=== PATIENT | male | born 1950 | race Caucasian/White ===

== ENCOUNTER 2016-10-16 17:22 | Inpatient (IN) | payer MEDICARE ==
[~2016-10-16] VITALS: Ht 190.5 cm; Wt 90.3 kg
[~2016-10-16 17:22] MED LIST: ALPR1T PO; ATEN50TA PO; AZTH250C PO; BUPR150T6 PO; CLN.1T PO; CLON1000 EP; CYCL10TA9 PO; FLUT1DIS26 IH; GABA600T2 PO; HYDR-3720 PO; MNTL10T PO; NFPRILOC40 PO; OXYC-281 PO; POTA20TA15 PO; PRD50T PO; RT-COMBINH IH; SIMV40TA4 PO; TESTOSTERONE; TRM50T PO; VARE1TAB17 PO; WARF7.5T PO; WRF5T PO; ZLP10T PO
[2016-10-16] MEDS ORDERED: LACTATED RINGERS 1,000 ML IV ONE (18:13)
[2016-10-16] MEDS ORDERED: ONDANSETRON 4 MG/2 ML (SDV) Z0FRAN IVP ONE (18:15)
[2016-10-16 18:19] LABS: BASOPHILS % (AUTO) 0 % (0-10); EOSINOPHILS # (AUTO) 0.4 10^3/uL (0.0-0.3); EOSINOPHILS % (AUTO) 5 % (0-10); LYMPHOCYTES # (AUTO) 2.1 X 10^3 (1.0-4.0); LYMPHOCYTES % (AUTO) 27 % (12-44); MEAN CORPUSCULAR HEMOGLOBIN 33 PG (25-34); MEAN CORPUSCULAR HGB CONC 35 G/DL (32-36); MEAN CORPUSCULAR VOLUME 94 FL (80-99); MONOCYTES # (AUTO) 0.6 X 10^3 (0.0-1.0); MONOCYTES % (AUTO) 7 % (0-12); NEUTROPHILS # (AUTO) 4.9 X 10^3 (1.8-7.8); NEUTROPHILS % (AUTO) 61 % (42-75); PLATELET COUNT 225 10^3/uL (130-400); RED BLOOD COUNT 5.19 10^6/uL (4.35-5.85); RED CELL DISTRIBUTION WIDTH 13.3 % (10.0-14.5)
[2016-10-16] MEDS ORDERED: fentaNYL INJECTION 100 MCG/2 ML AMP IVP STA ×2 (18:20→19:43)
[2016-10-16 18:25] LABS: PROTHROMBIN TIME PATIENT 31.2 SEC (12.2-14.7)
--- NOTE | 2016-10-16 18:27 | ED Abdominal Pain ---
General Chief Complaint: Abdominal/GI Problems Stated Complaint: STOMACH PAIN Nursing Triage Note: Pt reports he "has a blockage". Pt stating he has hx of multiple bowel obstructions and states he thinks he has a full blockage this time. Pt c/o midline abd pain and nausea. Sepsis Screen: No Definite Risk Source of Information: Patient History of Present Illness Time Seen By Provider: 18:09 Initial Comments PT C/O SEVERE GENERALIZED ABDOMINAL PAIN, DISTENTION AND NAUSEA SINCE 0900 THIS AM FELT FINE WHEN HE WOKE UP, ATE BREAKFAST AT 0830, AND SYMPTOMS BEGAN IMMEDIATELY AFTER THAT. HAS NOT HAD ANYTHING ELSE TO EAT OR DRINK TODAY PT HAD NORMAL BM YESTERDAY, AND HAD A VERY SMALL LIQUID STOOL TODAY AT 0600 PT HAS HAD MULTIPLE BOWEL OBSTRUCTIONS, AND HE STATES THIS ONE FEELS LIKE A TOTAL OBSTRUCTION--LAST SURGERY WAS A YEAR AGO FOR THIS PROBLEM AT [facility] , BUT HAS BEEN TO MULTIPLE FACILITIES AND MULTIPLE SURGEONS FOR THIS PROBLEM OVER THE YEARS--BEGAN WHEN HE WAS 26. NO FEVER HAS HAD DECREASED URINE OUTPUT TODAY PCP: DR. BABIN FREEBURN NO SURGEON Allergies and Home Medications Allergies Coded Allergies: No Known Drug Allergies (Verified , 10/08/07) Home Medications Alprazolam 1 Mg Tablet, 1 MG PO BID PRN, (Reported) Atenolol 50 Mg Tablet, 100 MG PO BID, (Reported) Bupropion Hcl 150 Mg Tab.sr.24h, 1 TAB PO DAILY, #30 (Reported) Clonidine Hcl/Pf 1,000 Mcg/10 Ml Vial, 1,000 MCG EP DAILY, (Reported) Cyclobenzaprine Hcl 10 Mg Tablet, 1 EACH PO Q8HR PRN, #15 Ref 0 FOR MUSCLE SPASMS Prescribed by: FRANK LAZO on 06/29/11 4425 Fluticasone/Salmeterol 1 Disk Inhp, 1 PUFF IH BID, (Reported) 1 PUFF Gabapentin 600 Mg Tablet, 1 EACH PO BID, (Reported) Hydrocodone Bit/Acetaminophen 1 Each Tablet, 1 EACH PO BID PRN, (Reported) Ipratropium/Albuterol Sulfate 14.7 Gm Aer.w.adap, 2 PUFF IH BID, (Reported) Montelukast Sodium 10 Mg Tab, 10 MG PO DAILY, (Reported) Potassium Chloride 20 Meq Tab.prt.sr, 1 EACH PO DAILY, (Reported) Varenicline Tartrate 1 Mg Tablet, 3 MG PO BID, (Reported) Warfarin Sodium 5 Mg Tablet, 5 MG PO DAILY, (Reported) Zolpidem Tartrate 10 Mg Tablet, 10 MG PO HS PRN, (Reported) Review of Systems Constitutional: no symptoms reported Respiratory: No Symptoms Reported Cardiovascular: No Symptoms Reported Gastrointestinal: See HPI, Abdomen Distended, Abdominal Pain, Nausea, Poor Appetite, Poor Fluid Intake, Denies Vomiting Genitourinary: See HPI Musculoskeletal: no symptoms reported Skin: no symptoms reported Psychiatric/Neurological: No Symptoms Reported Endocrine: No Symptoms Reported Hematologic/Lymphatic: No Symptoms Reported Past Knpvoaa-Rgjzru-Eaariq Hx Patient Social History Alcohol Use: Occasionally Uses (HISTORY OF ABUSE, NOW "OCCASIONALLY" DRINKS) Recreational Drug Use: No Smoking Status: Current Everyday Smoker (1 PPD) Type Used: Cigarettes Recent Foreign Travel: No Contact w/Someone Who Travel: No Recent Infectious Disease Expo: No Recent Hopitalizations: No Immunizations Up To Date Date of Pneumonia Vaccine: May 24, 2011 Date of Influenza Vaccine: Jan 22, 2012 Seasonal Allergies Seasonal Allergies: No Surgeries HX Surgeries: Yes (APPY AGE 3--RUPTURED/GANGRENE; MULTIPLE SURGERIES FOR BOWEL OBSTRUCTIONS; MULTIPLE HERNIA REPAIRS WITH MESH; THROMBECTOMY AND VASCULAR STENT TO RIGHT LEG; RIGHT HIP REPLACEMENT) Surgeries: Abdominal, Appendectomy, Bowel Surgery, Joint Replacement, Orthopedic, Vascular Surgery Respiratory Hx Respiratory Disorders: Yes Respiratory Disorders: Pulmonary Embolism, COPD Cardiovascular Hx Cardiac Disorders: Yes (DVT AND P.E.'S POST OP--ON GRAVITY MANAGER COUMADIN; ? CAD /DE??--PER OLD CHART) Cardiac Disorders: Coronary Artery Disease, Deep Vein Thrombosis, High Cholesterol, Hypertension, Peripheral Vascular Neurological Hx Neurological Disorders: Yes (CVA WITH RIGHT SIDE WEAKNESS) Neurological Disorders: Stroke, TIA Reproductive System Hx Reproductive Disorders: No Sexually Transmitted Disease: No Genitourinary Hx Genitourinary Disorders: No Gastrointestinal Hx Gastrointestinal Disorders: Yes (MULTIPLE BOWEL OBSTRUCTIONS AND MULTIPLE HERNIA REPAIRS) Gastrointestinal Disorders: Abdominal Hernia, Obstructive Bowel Musculoskeletal Hx Musculoskeletal Disorders: Yes (RIGHT HIP REPLACEMENT) Musculoskeletal Disorders: Osteoporosis, Arthritis, Chronic Back Pain Endocrine Hx Endocrine Disorders: No HEENT HX ENT Disorders: No Cancer Hx Cancer: Yes Cancer: Skin Psychosocial Hx Psychiatric Problems: Yes Behavioral Health Disorders: Sleep Difficulties, Anxiety, Depression Integumentary HX Skin/Integumentary Disorder: No Blood Transfusions Hx Blood Disorders: Yes (DVT, PE'S POST OP) Physical Exam Vital Signs VS - Last 72 Hours, by Label 10/16/16 17:51 Temp 97.0 Pulse 84 Resp 18 B/P (MAP) 169/105 Pulse Ox 94 O2 Delivery Room Air Capillary Refill : Less Than 3 Seconds General Appearance: WD/WN, no apparent distress HEENT: other (POOR DENTITION) Respiratory: normal breath sounds, no respiratory distress, no accessory muscle use Cardiovascular: regular rate, rhythm, no murmur Gastrointestinal: abnormal bowel sounds (RARE, HIGH-PITCHED), distended (AND FIRM), tenderness (DIFFUSE), No hernia, No mass Extremities: normal inspection, no pedal edema Back: no CVA tenderness 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/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, no motor/sensory deficits, alert, normal mood/affect, oriented x 3 Skin: normal color Progress/Results/Core Measures Results/Orders Lab Results Laboratory Tests Test 10/16/16 18:00 Range/Units White Blood Count 8.0 4.3-11.0 10^3/uL Red Blood Count 5.19 4.35-5.85 10^6/uL Hemoglobin 17.2 13.3-17.7 G/DL Hematocrit 49 40-54 % Mean Corpuscular Volume 94 80-99 FL Mean Corpuscular Hemoglobin 33 25-34 PG Mean Corpuscular Hemoglobin Concent 35 32-36 G/DL Red Cell Distribution Width 13.3 10.0-14.5 % Platelet Count 225 130-400 10^3/uL Mean Platelet Volume 9.0 7.4-10.4 FL Neutrophils (%) (Auto) 61 42-75 % Lymphocytes (%) (Auto) 27 12-44 % Monocytes (%) (Auto) 7 0-12 % Eosinophils (%) (Auto) 5 0-10 % Basophils (%) (Auto) 0 0-10 % Neutrophils # (Auto) 4.9 1.8-7.8 X 10^3 Lymphocytes # (Auto) 2.1 1.0-4.0 X 10^3 Monocytes # (Auto) 0.6 0.0-1.0 X 10^3 Eosinophils # (Auto) 0.4 H 0.0-0.3 10^3/uL Basophils # (Auto) 0.0 0.0-0.1 10^3/uL Prothrombin Time 31.2 H 12.2-14.7 SEC INR Comment 3.0 H 0.8-1.4 Activated Partial Thromboplast Time 49 H 24-35 SEC Sodium Level 140 135-145 MMOL/L Potassium Level 3.8 3.6-5.0 MMOL/L Chloride Level 101 98-107 MMOL/L Carbon Dioxide Level 28 21-32 MMOL/L Anion Gap 11 5-14 MMOL/L Blood Urea Nitrogen 8 7-18 MG/DL Creatinine 0.82 0.60-1.30 MG/DL Estimat Glomerular Filtration Rate > 60 BUN/Creatinine Ratio 10 0-20 Glucose Level 103 70-105 MG/DL Calcium Level 9.3 8.5-10.1 MG/DL Magnesium Level 2.1 1.8-2.4 MG/DL Total Bilirubin 0.5 0.1-1.0 MG/DL Aspartate Amino Transf (AST/SGOT) 24 5-34 U/L Alanine Aminotransferase (ALT/SGPT) 21 0-55 U/L Alkaline Phosphatase 90 40-136 U/L Total Protein 7.5 6.4-8.2 GM/DL Albumin 4.0 3.2-4.5 GM/DL Amylase Level 39 25-125 U/L Lipase 15 8-78 U/L My Orders Orders - FRANK LAZO DO Saline Lock/Iv-Start (10/16/16 18:13) Amylase (10/16/16 18:13) Cbc With Automated Diff (10/16/16 18:13) Comprehensive Metabolic Panel (10/16/16 18:13) Lipase (10/16/16 18:13) Magnesium (10/16/16 18:13) Protime With Inr (10/16/16 18:13) Partial Thromboplastin Time (10/16/16 18:13) Ua Culture If Indicated (10/16/16 18:13) Acute Abd Series (10/16/16 18:13) Ct Abdomen/Pelvis Wo (10/16/16 18:13) Saline Lock/Iv-Start (10/16/16 18:13) Lactated Ringers (Lr 1000 Ml Iv Solution (10/16/16 18:13) Ondansetron Injection (Zofran Injectio (10/16/16 18:15) Fentanyl Injection (Sublimaze Injection (10/16/16 18:20) Drug Screen Stat (Urine) (10/16/16 18:25) Medications Given in ED Current Medications Medications Dose Ordered Sig/Baylee Route Start Time Stop Time Status Last Admin Dose Admin Lactated Ringer's 1,000 ml @ 0 mls/hr Q0M ONCE IV 10/16/16 18:13 10/16/16 18:15 DC 10/16/16 18:23 1,000 MLS/HR Ondansetron HCl 4 mg ONCE ONCE IVP 10/16/16 18:15 10/16/16 18:16 DC 10/16/16 18:23 4 MG Vital Signs/I&O Vital Sign - Last 12Hours 10/16/16 17:51 Temp 97.0 Pulse 84 Resp 18 B/P (MAP) 169/105 Pulse Ox 94 O2 Delivery Room Air Blood Pressure Mean: 126 Progress Note : Progress Note PAIN EASED WITH MEDICATIONS. NO DETERIORATION IN PT'S CONDITION DURING ER STAY Diagnostic Imaging Comments CT ABDOMEN/PELVIS--PROXIMAL SMALL BOWEL OBSTRUCTION--PER RADIOLOGIST REPORT @ 1908 ACUTE ABDOMEN XRAYS--SBO, PER RADIOLOGIST REPORT @ 1922 Reviewed: Reviewed by Me Departure Communication Progress Notes 1907/1909--PAGED/SPOKE WITH DR. SIDDIQUI--ACCEPTS PT FOR ADMIT. ORDERS NOTED. Impression Impression: Primary Impression: Small bowel obstruction Disposition: ADMITTED INPATIENT Condition: Stable Decision to Admit Reason: Admit from ER (General) Decision to Admit/Date: Oct 16, 2016 Time/Decision to Admit Time: 19:10 Departure-Patient Inst. Referrals: NO,LOCAL PHYSICIAN (PCP/Family) Primary Care Physician FRANK LAZO DO Oct 16, 2016 18:27
[2016-10-16 18:37] LABS: ALANINE AMINOTRANSFERASE 21 U/L (0-55); AMYLASE 39 U/L (25-125); ANION GAP 11 MMOL/L (5-14); ASPARTATE AMINO TRANSFERASE 24 U/L (5-34); BILIRUBIN,TOTAL 0.5 MG/DL (0.1-1.0); BLOOD UREA NITROGEN 8 MG/DL (7-18); BUN/CREATININE RATIO 10 (0-20); CALCIUM 9.3 MG/DL (8.5-10.1); CARBON DIOXIDE 28 MMOL/L (21-32); CHLORIDE 101 MMOL/L (98-107); CREATININE SERUM 0.82 MG/DL (0.60-1.30); GFR ESTIMATED > 60; GLUCOSE 103 MG/DL (70-105); HEMOLYSIS 15 (-100-29); ICTERUS 0.4 (-100-1.9); LIPASE 15 U/L (8-78); LIPEMIA 3 (-100-49); MAGNESIUM 2.1 MG/DL (1.8-2.4); POTASSIUM 3.8 MMOL/L (3.6-5.0); SODIUM 140 MMOL/L (135-145); TOTAL PROTEIN 7.5 GM/DL (6.4-8.2)
--- NOTE | 2016-10-16 19:06 | Diagnostic Imaging Report ---
PROCEDURE: CT abdomen and pelvis without contrast. TECHNIQUE: Multiple contiguous axial images were obtained through the abdomen and pelvis without the use of intravenous contrast. INDICATION: Lower pelvic pain and nausea. COMPARISON: CT abdomen and pelvis with IV contrast 06/04/2012. FINDINGS: The lung bases are clear. Stable 1.0 cm hypoattenuating lesion in the posterior right hepatic lobe. The gallbladder, pancreas, spleen, adrenals, kidneys and collecting systems are negative on this noncontrast exam. The pelvis is mildly obscured by streak artifact from a right DANIEL. Moderate arterial calcifications including a normal-caliber abdominal aorta. Stable postoperative changes in the right anterior abdominal wall and small bowel anastomosis. There are several loops of dilated proximal small bowel with a probable transition point along the postoperative changes in the right anterior abdominal wall suspicious for adhesions. No pneumatosis or portal venous gas. No free intraperitoneal air. No free fluid. No lymphadenopathy. Moderate to advanced degenerative changes in the visualized thoracolumbar spine. No acute osseous findings. IMPRESSION: Dilated loops of proximal small bowel suspicious for small bowel obstruction. There appears to be a transition point along the anterior abdominal wall postoperative changes with decompression of the more distal small bowel. Findings are suspicious for an obstruction due to adhesions. Dictated by: Dictated on workstation # [id number]
--- NOTE | 2016-10-16 19:13 | Diagnostic Imaging Report ---
INDICATION: History of multiple bowel obstructions. Abdominal pain. COMPARISON: CT abdomen and pelvis performed earlier same day. FINDINGS: There are numerous gas-filled and dilated loops of small bowel throughout the abdomen. There is also gas seen within a nondilated ascending and transverse colon. No evidence of free intraperitoneal air. Lungs are clear. No pleural effusion or pneumothorax. Right total hip arthroplasty. IMPRESSION: 1. At least partial small bowel obstruction with numerous gas-filled and dilated loops of small bowel. Please see CT abdomen and pelvis report dictated separately for more complete details. Dictated by: Dictated on workstation # [id number]
[2016-10-16] MEDS ORDERED: PANTOPRAZOLE 40 MG/10 ML (PROTONIX) VIAL IV ONE (19:15)
[2016-10-16 20:46] LABS: BILIRUBIN,URINE NEGATIVE (NEGATIVE); KETONES,URINE NEGATIVE (NEGATIVE); LEUKOCYTE ESTERASE ,URINE NEGATIVE (NEGATIVE); NITRITE,URINE NEGATIVE (NEGATIVE); PH,URINE 6 (5-9); PROTEIN,URINE NEGATIVE (NEGATIVE); UROBILINOGEN,URINE 1 MG/DL (NORMAL)
[2016-10-16 20:53] LABS: SQUAMOUS EPITHELIAL CELL,UR RARE /HPF
[2016-10-16 21:00] VITALS: BP 172/97
--- NOTE | 2016-10-16 21:41 | History & Physicial ---
History of Present Illness History of Present Illness Reason for visit/HPI recurrent central abdominal pain and nausea of acute onset. Date of Admission Oct 16, 2016 at 19:10 Time Seen by Provider: 21:36 I consulted on this patient on 10/16/16 21:36 Attending Physician Keaton López MD Admitting Physician Elaina,Local Physician Consult Allergies and Home Medications Allergies Coded Allergies: No Known Drug Allergies (Verified , 10/08/07) Home Medications Alprazolam 1 Mg Tablet, 1 MG PO BID PRN, (Reported) Atenolol 50 Mg Tablet, 100 MG PO BID, (Reported) Bupropion Hcl 150 Mg Tab.sr.24h, 1 TAB PO DAILY, #30 (Reported) Clonidine Hcl/Pf 1,000 Mcg/10 Ml Vial, 1,000 MCG EP DAILY, (Reported) Cyclobenzaprine Hcl 10 Mg Tablet, 1 EACH PO Q8HR PRN, #15 Ref 0 FOR MUSCLE SPASMS Prescribed by: FRANK LAZO on 06/29/11 1735 Fluticasone/Salmeterol 1 Disk Inhp, 1 PUFF IH BID, (Reported) 1 PUFF Gabapentin 600 Mg Tablet, 1 EACH PO BID, (Reported) Hydrocodone Bit/Acetaminophen 1 Each Tablet, 1 EACH PO BID PRN, (Reported) Ipratropium/Albuterol Sulfate 14.7 Gm Aer.w.adap, 2 PUFF IH BID, (Reported) Montelukast Sodium 10 Mg Tab, 10 MG PO DAILY, (Reported) Potassium Chloride 20 Meq Tab.prt.sr, 1 EACH PO DAILY, (Reported) Varenicline Tartrate 1 Mg Tablet, 3 MG PO BID, (Reported) Warfarin Sodium 5 Mg Tablet, 5 MG PO DAILY, (Reported) Zolpidem Tartrate 10 Mg Tablet, 10 MG PO HS PRN, (Reported) Past Nisioky-Xmgcnh-Vefujo Hx Patient Social History Marrital Status: Number of Children: 3 Number of living children: 3 Employed/Student: retired Alcohol Use: Occasionally Uses (HISTORY OF ABUSE, NOW "OCCASIONALLY" DRINKS) Recreational Drug Use: No Smoking Status: Current Everyday Smoker (1 PPD) Cigaretts per day: 15 Type Used: Cigarettes Recent Foreign Travel: No Contact w/other who traveled: No Recent Hopitalizations: No Recent Infectious Disease Expo: No Immunizations Up To Date Tetanus Booster (TDap): Unknown Date of Pneumonia Vaccine: May 24, 2011 Date of Influenza Vaccine: Jan 22, 2012 Seasonal Allergies Seasonal Allergies: No Surgeries HX Surgeries: Yes (APPY AGE 3--RUPTURED/GANGRENE; MULTIPLE SURGERIES FOR BOWEL OBSTRUCTIONS; MULTIPLE HERNIA REPAIRS WITH MESH; THROMBECTOMY AND VASCULAR STENT TO RIGHT LEG; RIGHT HIP REPLACEMENT) Surgeries: Appendectomy, Bowel Surgery, Joint Replacement, Orthopedic, Vascular Surgery Respiratory Hx Respiratory Disorders: Yes Respiratory Disorders: COPD Cardiovascular Hx Cardiovascular Disorders: Yes (DVT AND P.E.'S POST OP--ON HALFWAY COUMADIN ) Cardiac Disorders: Coronary Artery Disease, Deep Vein Thrombosis, High Cholesterol, Hypertension, Peripheral Vascular Neurological Hx Neurological Disorders: Yes (CVA WITH RIGHT SIDE WEAKNESS) Neurological Disorders: Stroke, TIA Reproductive System Hx Reproductive Disorders: No Sexually Transmitted Disease: No Genitourinary Hx Genitourinary Disorders: No Gastrointestinal Hx Gastrointestinal Disorders: Yes (MULTIPLE BOWEL OBSTRUCTIONS) Gastrointestinal Disorders: Abdominal Hernia, Obstructive Bowel Musculoskeletal Hx Musculoskeletal Disorders: Yes Musculoskeletal Disorders: Arthritis, Chronic Back Pain Endocrine Hx Endocrine Disorders: No HEENT HX ENT Disorders: No Cancer Hx Cancer: Yes Cancer: Skin Psychosocial Hx Psychiatric Problems: Yes Behavioral Health Disorders: Sleep Difficulties, Anxiety, Depression Integumentary HX Skin/Integumentary Disorder: No Blood Transfusions Hx Blood Disorders: Yes (DVT, PE'S POST OP) Constitutional: malaise EENTM: no symptoms reported Respiratory: cough Cardiovascular: no symptoms reported Gastrointestinal: abdominal pain (RLQ), nausea Genitourinary: no symptoms reported Musculoskeletal: back pain Skin: no symptoms reported Psychiatric/Neurological: No Symptoms Reported Physical Exam Vital Signs Vital Sign - Last 12Hours 10/16/16 17:51 Temp 97.0 Pulse 84 Resp 18 B/P (MAP) 169/105 Pulse Ox 94 O2 Delivery Room Air Capillary Refill : Less Than 3 Seconds General Appearance: No Apparent Distress HEENT: Normal ENT Inspection Neck: Supple Respiratory: Lungs Clear Cardiovascular: Regular Rate, Rhythm Gastrointestinal: Non Tender, Soft, Hernia Rectal: Deferred Extremity: Non Tender Neurologic/Psychiatric: Alert, Oriented x3 Skin: Warm/Dry Comments long midline scar with a recurrent ventral hernia and a palpable mesh underneath the skin. Scar over the right lower quadrant from open appendectomy followed by repair of an incisional hernia Assessment/Plan Assessment and Plan gentleman with recurrent partial small bowel obstruction. Previous surgeries to address incisional hernias with recurrent and adhesive small bowel obstruction.we'll continue nasogastric decompression and possibly at Dee a contrast study in 24 hours. IV be a blockers should be used to optimize his blood pressure control. Therapeutic on Coumadin with an INR of 3 and therefore Lovenox would be withheld at this point Problems: Admission Diagnosis recurrent, partial small bowel obstruction KEATON LÓPEZ MD Oct 16, 2016 21:41
[2016-10-16] MEDS: NICOTINE 14 MG (NICODERM) PATCH TD SCH (21:58)
[2016-10-16] MEDS: meTOprolol 5 MG/5 ML (LOPRESSOR) VIAL IV PRN (21:58)
[2016-10-16] MEDS: D5 1/2 NS W/KCL 20 MEQ/L 1,000 ML IV SCH (21:58)
[2016-10-16] MEDS ORDERED: fentaNYL INJECTION 100 MCG/2 ML AMP IV PRN (22:00)
[2016-10-16] MEDS ORDERED: ONDANSETRON 4 MG/2 ML (SDV) Z0FRAN IV PRN (22:00)
[2016-10-16] MEDS: fentaNYL INJECTION 100 MCG/2 ML AMP IV PRN (22:20)
[2016-10-16] MEDS: METOCLOPRAMIDE INJ 10 MG/2 ML (REGLAN) IVP SCH (23:12)
[2016-10-17] VITALS: BP 166/104
[2016-10-17] MEDS: meTOprolol 5 MG/5 ML (LOPRESSOR) VIAL IV PRN ×4 (00:58→13:21)
[2016-10-17] MEDS: fentaNYL INJECTION 100 MCG/2 ML AMP IV PRN ×3 (01:52→12:38)
[2016-10-17 04:00] VITALS: BP 158/94
[2016-10-17] MEDS: D5 1/2 NS W/KCL 20 MEQ/L 1,000 ML IV SCH ×4 (05:03→19:30)
[2016-10-17] MEDS: METOCLOPRAMIDE INJ 10 MG/2 ML (REGLAN) IVP SCH ×4 (05:04→23:20)
[2016-10-17 05:13] LABS: INR 2.8 (0.8-1.4); PROTHROMBIN TIME PATIENT 29.6 SEC (12.2-14.7)
[2016-10-17 08:00] VITALS: BP 163/100
[2016-10-17] MEDS: NICOTINE 14 MG (NICODERM) PATCH TD SCH (08:32)
--- NOTE | 2016-10-17 08:40 | Diagnostic Imaging Report ---
CLINICAL INDICATION: Patient with small bowel obstruction. EXAM: X-rays of the abdomen with supine and upright views. COMPARISON: X-rays of the chest and abdomen dated 10/16/2016. FINDINGS: Again seen are multiple loops of air dilated small bowel, most pronounced in the central aspect of the abdomen. The degree of air dilation has decreased compared to the prior study. There are continued air/fluid levels across the mid abdominal region again seen. There is a small amount of air seen in the region of the colon which has slightly decreased compared to the prior study. There is also some air in the rectosigmoid region. There is no evidence of intra-abdominal free air. There has been placement of an orogastric or nasogastric tube which is coiled overlying the expected region of the stomach. The tip is overlying the expected region of the fundus of the stomach. Again seen are surgical hernia repair tacks overlying the right abdominal/pelvic region. Right hip arthroplasty is noted. There is dextroscoliosis of the lumbar spine with hypertrophic spurs again seen. IMPRESSION: There is interval decrease in the air dilation of small bowel overlying the abdomen with air/fluid levels. There is also a small amount of air throughout the colon. These findings may represent a partial small bowel obstruction. Dictated by: Dictated on workstation # [id number]
[2016-10-17] MEDS ORDERED: PANTOPRAZOLE 40 MG/10 ML (PROTONIX) VIAL IV SCH (09:00)
--- OUTSIDE RECORDS SUMMARY | 2016-10-17 09:07 | XMS REPORT | Continuity of Care Document ---
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 If you do not see the information that you expected, contact Release of Information in the Health Information Management department at [phone] for further assistance in locating additional records.[facility] Active Allergies and Adverse Reactions No Known Allergies Current Medications Prescription Sig. Disp. Refills Start End Date Status Date alprazolam (XANAX) 1 mg Take 1 mg by mouth Twice Active tablet Daily. hydrochlorothiazide Take 1 Tab by mouth Active (HYDRODIURIL) 25 mg Daily. tablet clonidine (CATAPRESS) 0.1 Take 0.1 mg by mouth Active mg tablet Daily. (only takes for BP > 160/108) ipratropium/albuterol Inhale 2 Puffs by mouth Active (COMBIVENT) 103/18 Every 3 Hours as needed mcg/Actuation inhaler for Wheezing. ADVAIR DISKUS 250/50 mcg Inhale 1 Puff by mouth Active inhalation disk Every 12 Hours. albuterol-ipratropium Inhale 3 mL solution as Active (DUO-NEB) 0.5-2.5 mg/3 mL directed Three Times nebulizer solution Daily. atenolol (TENORMIN) 25 mg Take 1 mg by mouth Daily. Active tablet metoclopramide (REGLAN) 5 Take 1 Tab by mouth Every 30 0 10/04/19 Active mg tablet 6 Hours. 08 senna/docusate Take 2 Tabs by mouth 60 2 10/14/20 Active (SENOKOT-S) 8.6/50 mg Twice Daily. 08 tablet senna/docusate Take 2 Tabs by mouth 90 2 10/15/19 Active (SENOKOT-S) 8.6/50 mg Twice Daily. 08 tablet hydrocodone/acetaminophen Take 1-2 Tabs by mouth 60 0 10/27/19 Active (VICODIN) 5/500 mg tablet Every 6 Hours as needed 08 for Pain. senna/docusate Take 1 Tab by mouth Twice 60 0 10/27/19 Active (SENOKOT-S) 8.6/50 mg Daily. 08 tablet warfarin (COUMADIN) 7.5 Take 1 Tab by mouth At 30 0 10/27/19 Active mg tablet Bedtime Daily. It is 08 important to follow-up with your primary care physician and have an INR level drawn on , 10/17/07. Your Coumadin level may require an adjustment in dosing. Active Problems Problem Noted Date Thromboembolism (HCC) 10/15/2007 Postoperative hematoma 10/15/2007 Incisional hernia 10/04/2007 Social History Tobacco Use Types Packs/Day Years Used Date Former Smoker 2 Quit: 07/25/2007 Comments: smoked for 20+ years, quit 3 weeks ago Alcohol Use Drinks/Week oz/Week Comments Yes 12 Cans of 144.0 beer Last Filed Vital Signs Vital Sign Reading Time Taken Blood Pressure 118/84 10/27/2007 7:45 AM CDT Pulse 66 10/27/2007 7:45 AM CDT Temperature 36.3 C (97.3 F) 10/27/2007 7:45 AM CDT Respiratory Rate - - Height 1.905 m (6' 3") 10/09/2007 2:00 PM CDT Weight 104.3 kg (229 lb 15 oz) 10/09/2007 2:00 PM CDT Body Mass Index 28.74 10/09/2007 2:00 PM CDT Oxygen Saturation 92% 10/27/2007 7:45 AM CDT Plan of Care Health Maintenance Due Date Last Done Comments Hepatitis C Screening 1950 Physical (Comprehensive) 1957 Exam Pertussis Vaccine 1961 Tetanus Vaccine 06/24/1967 Colorectal Cancer 2000 Screening Shingles Vaccine 2010 Abdominal Aortic Aneurysm 06/24/2015 Screening Prevnar/Pneumovax (#1) 06/24/2015 Influenza Vaccine 12/22/2016 Results from Last 3 Months Not on file
--- OUTSIDE RECORDS SUMMARY | 2016-10-17 09:07 | XMS REPORT | Continuity of Care Document ---
Author Author [facility] Organization [facility] Address Unknown Phone Unavailable Allergies Active Description Code Type Severity Reaction Onset Reported/Identified Relationship to Patient Clinical Status Yes No Known Drug Allergies [id number] Drug Allergy Unknown N/ A 10/08/2007 Medications Problems Date Dx Coded Attending Type Code Diagnosis Diagnosed By 12/04/2009 Ot 305.1 12/04/2009 Ot 401.9 12/04/2009 Ot 412 12/04/2009 Ot 414.01 12/04/2009 Ot 427.89 12/04/2009 Ot 443.9 12/04/2009 Ot 496 12/04/2009 Ot 786.50 12/04/2009 Ot 790.29 12/04/2009 Ot 790.3 12/04/2009 Ot V12.51 12/04/2009 Ot V12.54 12/04/2009 Ot V12.59 12/04/2009 Ot V12.79 12/04/2009 Ot V45.89 02/11/2010 Ot 305.1 02/11/2010 Ot 368.9 02/11/2010 Ot 401.9 02/11/2010 Ot 414.00 02/11/2010 Ot 443.9 02/11/2010 Ot 496 02/11/2010 Ot 784.0 02/11/2010 Ot V12.54 02/11/2010 Ot V58.61 02/11/2010 Ot V58.69 11/22/2010 Ot 414.00 11/22/2010 Ot 491.21 11/22/2010 Ot 786.50 11/22/2010 Ot 786.52 11/22/2010 Ot V58.61 11/22/2010 Ot V58.65 11/22/2010 Ot V58.69 02/20/2011 Ot 305.1 02/20/2011 Ot 401.9 02/20/2011 Ot 414.01 02/20/2011 Ot 496 02/20/2011 Ot 560.9 02/20/2011 Ot 715.35 02/20/2011 Ot 733.00 02/20/2011 Ot V12.51 02/20/2011 Ot V12.54 06/29/2011 Ot 719.45 06/07/2012 Ot 305.1 06/07/2012 Ot 356.9 06/07/2012 Ot 401.9 06/07/2012 Ot 496 06/07/2012 Ot 553.21 06/07/2012 Ot 560.81 06/07/2012 Ot V12.51 06/07/2012 Ot V12.54 06/07/2012 Ot V12.55 05/05/2014 Ot 603.9 05/05/2014 Ot 608.89 05/05/2014 Ot 729.5 05/05/2014 Ot 603.9 05/05/2014 Ot V58.61 05/05/2014 Ot V72.81 05/05/2014 Ot V72.83 05/05/2014 Ot V74.8 05/06/2014 LOIS BABIN DO Ot 724.2 05/06/2014 LOIS BABIN DO Ot 729.89 05/06/2014 LOIS BABIN DO Ot 724.2 05/06/2014 LOIS BABIN DO Ot 729.89 05/28/2014 LOIS BABIN DO Ot 724.2 05/28/2014 LOIS BABIN DO Ot 729.89 Procedures Results Encounters ACCT No. Visit Date/Time Discharge Status Pt. Type Provider Facility Loc./Unit Complaint [id number] 05/05/2014 14:48:00 2014 23:59:59 [facility] Outpatient LOIS BABIN DO [facility] [id number] 05/05/2014 14:48:00 Document Registration [id number] 06/05/2012 15:55:00 Document Registration [id number] 06/29/2011 16:26:00 Document Registration [id number] 02/17/2011 19:25:00 Document Registration [id number] 11/22/2010 15:18:00 Document Registration [id number] 02/10/2010 21:14:00 Document Registration [id number] 12/01/2009 18:12:00 Document Registration [id number] 12/09/2008 09:07:00 Document Registration [id number] 11/25/2008 12:42:00 Document Registration
[2016-10-17] MEDS ORDERED: DOXE25CA46 PO (09:14)
[2016-10-17] MEDS ORDERED: TEST200V21 IM (09:14)
[2016-10-17] MEDS ORDERED: WARF-48 PO (09:14)
[2016-10-17] MEDS ORDERED: HYDR-3820 PO (09:14)
[2016-10-17] MEDS ORDERED: OMEP40CA36 PO (09:14)
[2016-10-17] MEDS ORDERED: GABA800T2 PO (09:14)
[2016-10-17] MEDS ORDERED: MONT10TA24 PO (09:14)
[2016-10-17] MEDS ORDERED: METO100T2 PO (09:14)
--- OUTSIDE RECORDS SUMMARY | 2016-10-17 09:29 | XMS REPORT | Continuity of Care Document ---
Author Author [facility] Organization [facility] Address Unknown Phone Unavailable Care Team Providers Care Correspondence Specialist Name Role Phone Ziroxana Kristopher PCP [phone] Source Comments Some departments are not documenting in the electronic medical record. If you do not see the information that you expected, contact Release of Information in the Health Information Management department at [phone] for further assistance in locating additional records.[facility] Active Allergies and Adverse Reactions No Known [...]
--- OUTSIDE RECORDS SUMMARY | 2016-10-17 09:29 | XMS REPORT | Continuity of Care Document ---
Author Author [facility] Organization [facility] Address Unknown Phone Unavailable Allergies Active Description Code Type Severity Reaction Onset Reported/Identified Relationship to Patient Clinical Status Yes No Known Drug Allergies [id number] Drug Allergy Unknown N/ A 10/08/2007 Medications [...] Status Pt. Type Provider Facility Loc./Unit Complaint [id number] 05/05/2014 14:48:00 2014 23:59:59 [facility] Outpatient LOIS BABIN DO [facility] [id number] 05/05/2014 14:48:00 Document Registration [id number] 06/05/2012 15:55:00 Document Registration [id number] 06/29/2011 16:26:00 Document Registration [id number] 02/17/2011 19:25:00 Document Registration [id number] 11/22/2010 15:18:00 Document Registration [id number] 02/10/2010 21:14:00 Document Registration [id number] 12/01/2009 18:12:00 Document Registration [id number] 12/09/2008 09:07:00 Document Registration [id number] 11/25/2008 12:42:00 Document Registration
[2016-10-17 12:00] VITALS: BP 169/106
[2016-10-17] MEDS ORDERED: NON-FORMULARY MEDICATION 1 EA EA (Testosterone Cypionate 200 MG) IM SCH (15:30)
[2016-10-17] MEDS ORDERED: HYDROcodone/APAP 10 MG/325 MG (LORTAB) TAB PO PRN (15:30)
--- NOTE | 2016-10-17 15:42 | Progress Note (SOAP) ---
Subjective Date Seen by Provider: Oct 17, 2016 Time Seen by Provider: 15:00 Subjective/Events-last exam doing much better now. passing copious flatus. no nausea/vomiting. no abd pain. Objective Exam Vital Signs Date Time Temp Pulse Resp B/P (MAP) Pulse Ox O2 Delivery O2 Flow Rate FiO2 10/17/16 13:00 56 10/17/16 12:00 97.5 57 20 169/106 95 Room Air 10/17/16 08:45 95 Room Air 10/17/16 08:00 97.0 58 20 163/100 95 Room Air 10/17/16 07:00 67 10/17/16 04:00 96.8 60 20 158/94 95 Room Air 10/17/16 01:00 64 10/17/16 00:00 99.1 74 20 166/104 93 Room Air 10/16/16 22:10 Room Air 10/16/16 21:51 75 10/16/16 21:00 96.8 74 20 172/97 93 Room Air 10/16/16 20:40 98.1 77 20 93 Room Air 10/16/16 17:51 97.0 84 18 169/105 94 Room Air I & O 10/17/16 07:00 Intake Total 1000 ml Output Total 1675 ml Balance -675 ml Capillary Refill : Less Than 3 Seconds General Appearance: No Apparent Distress HEENT: PERRL/EOMI Neck: Full Range of Motion Respiratory: Chest Non Tender, Lungs Clear, Normal Breath Sounds Cardiovascular: Regular Rate, Rhythm Gastrointestinal: normal bowel sounds, non tender, soft Extremity: Normal Capillary Refill Neurologic/Psychiatric: Alert, Oriented x3 Skin: Normal Color Lymphatic: No Adenopathy Results Lab Laboratory Tests 10/16/16 18:00: White Blood Count 8.0, Red Blood Count 5.19, Hemoglobin 17.2, Hematocrit 49, Mean Corpuscular Volume 94, Mean Corpuscular Hemoglobin 33, Mean Corpuscular Hemoglobin Concent 35, Red Cell Distribution Width 13.3, Platelet Count 225, Mean Platelet Volume 9.0, Neutrophils (%) (Auto) 61, Lymphocytes (%) (Auto) 27, Monocytes (%) (Auto) 7, Eosinophils (%) (Auto) 5, Basophils (%) (Auto) 0, Neutrophils # (Auto) 4.9, Lymphocytes # (Auto) 2.1, Monocytes # (Auto) 0.6, Eosinophils # (Auto) 0.4H, Basophils # (Auto) 0.0, Prothrombin Time 31.2H, INR Comment 3.0H, Activated Partial Thromboplast Time 49H, Sodium Level 140, Potassium Level 3.8, Chloride Level 101, Carbon Dioxide Level 28, Anion Gap 11, Blood Urea Nitrogen 8, Creatinine 0.82, Estimat Glomerular Filtration Rate > 60 , BUN/Creatinine Ratio 10, Glucose Level 103, Calcium Level 9.3, Magnesium Level 2.1, Total Bilirubin 0.5, Aspartate Amino Transf (AST/SGOT) 24, Alanine Aminotransferase (ALT/SGPT) 21, Alkaline Phosphatase 90, Total Protein 7.5, Albumin 4.0, Amylase Level 39, Lipase 15 10/16/16 20:39: Urine Color YELLOW, Urine Clarity CLEAR, Urine pH 6, Urine Specific Catron 1.015L, Urine Protein NEGATIVE, Urine Glucose (UA) NEGATIVE, Urine Ketones NEGATIVE, Urine Nitrite NEGATIVE, Urine Bilirubin NEGATIVE, Urine Urobilinogen 1 , Urine Leukocyte Esterase NEGATIVE, Urine RBC (Auto) NEGATIVE, Urine RBC NONE, Urine WBC NONE, Urine Squamous Epithelial Cells RARE, Urine Crystals PRESENTH, Urine Amorphous Sediment RARE SARAH URATESH, Urine Bacteria NONE, Urine Casts NONE, Urine Mucus NEGATIVE, Urine Culture Indicated NO, Urine Opiates Screen NEGATIVE, Urine Oxycodone Screen NEGATIVE, Urine Methadone Screen NEGATIVE, Urine Propoxyphene Screen NEGATIVE, Urine Barbiturates Screen NEGATIVE, Ur Tricyclic Antidepressants Screen NEGATIVE, Urine Phencyclidine Screen NEGATIVE, Urine Amphetamines Screen NEGATIVE, Urine Methamphetamines Screen NEGATIVE, Urine Benzodiazepines Screen NEGATIVE, Urine Cocaine Screen NEGATIVE, Urine Cannabinoids Screen NEGATIVE 10/17/16 04:35: Prothrombin Time 29.6H, INR Comment 2.8H Assessment/Plan Assessment/Plan Assess & Plan/Chief Complaint PSBO secondary to adhesions. doing much better with conservative management. will d/c NGT and start clears. continue ambulation. 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 Clinical Quality Measures DVT/VTE Risk/Contraindication: Risk Factor Score Per Nursin RFS Level Per Nursing on Admit: 4+=Very High TRENTON MORALES MD Oct 17, 2016 15:42
[2016-10-17 16:05] VITALS: BP 162/98
[2016-10-17 19:15] VITALS: BP 176/91
[2016-10-17] MEDS ORDERED: MONTELUKAST 10 MG (SINGULAIR) TAB PO SCH (21:00)
[2016-10-17] MEDS ORDERED: meTOprolol TARTRATE 50 MG (LOPRESSOR) TAB PO SCH (21:00)
[2016-10-17] MEDS ORDERED: GABAPENTIN 400 MG (NEURONTIN) CAP PO SCH (21:00)
[2016-10-17] MEDS ORDERED: GABAPENTIN 600 MG (NEURONTIN) TAB PO SCH (21:00)
[2016-10-17] MEDS ORDERED: warFARin 5 MG (COUMADIN) TAB PO SCH (21:00)
[2016-10-17] MEDS ORDERED: DOXEPIN 25 MG (SINEquan) CAP PO SCH (21:00)
[2016-10-18] VITALS: BP 146/83
[2016-10-18] MEDS: D5 1/2 NS W/KCL 20 MEQ/L 1,000 ML IV SCH (02:30)
[2016-10-18 04:00] VITALS: BP 159/94
[2016-10-18] MEDS: METOCLOPRAMIDE INJ 10 MG/2 ML (REGLAN) IVP SCH ×2 (05:42→12:14)
[2016-10-18] MEDS ORDERED: PANTOPRAZOLE 40 MG (PROTONIX) TAB PO SCH (07:00)
[2016-10-18 07:30] VITALS: BP 166/94
[2016-10-18] MEDS: NICOTINE 14 MG (NICODERM) PATCH TD SCH (11:36)
[2016-10-18 12:00] VITALS: BP 165/87
[2016-10-18 15:45] VITALS: BP 167/91
[2016-10-18 17:54] VITALS: BP 165/87
== END 2016-10-18 17:32 | disposition home or self-care (01) | DRG 328 ==
LOC: EDUNIT# 17:22 → ER 17:23 → 4TH 19:10
PROVIDERS: ADMIT Surgery; ATTEND Surgery
PROC: 0D9470Z Drainage of Esophagogastric Junction with Drainage Device, Via Natural or Artificial Opening (ICD-10-PCS; principal; 2016-10-16)
DX: K56.5 Intestinal adhesions [bands] with obstruction (postinfection) (principal); J44.9 Chronic obstructive pulmonary disease, unspecified; I25.10 Atherosclerotic heart disease of native coronary artery without angina pectoris; I10 Essential (primary) hypertension; E78.00 Pure hypercholesterolemia, unspecified; F17.210 Nicotine dependence, cigarettes, uncomplicated; I73.9 Peripheral vascular disease, unspecified; F41.9 Anxiety disorder, unspecified; F32.9 Major depressive disorder, single episode, unspecified; M81.0 Age-related osteoporosis without current pathological fracture; M19.91 Primary osteoarthritis, unspecified site; M54.9 Dorsalgia, unspecified; C44.90 Unspecified malignant neoplasm of skin, unspecified; G47.9 Sleep disorder, unspecified; F10.10 Alcohol abuse, uncomplicated; Z79.01 Long term (current) use of anticoagulants; Z86.718 Personal history of other venous thrombosis and embolism; Z86.711 Personal history of pulmonary embolism; Z95.828 Presence of other vascular implants and grafts; Z86.73 Personal history of transient ischemic attack (TIA), and cerebral infarction without residual deficits; Z96.641 Presence of right artificial hip joint
CPT/HCPCS: 36415; 74020; 74022; 74176; 80053; 80306; 81000; 82150; 83690; 83735; 85025; 85610; 85730; 96361; 96374; 96375; 96376